=== PATIENT | male | born 1950 | race Hispanic/Latino ===

== ENCOUNTER 2016-09-21 10:32 | Emergency (ER) | payer MEDICARE ==
[2016-09-21 13:15] LABS: Anion Gap 15 mmol/L; BUN/Creatinine Ratio 16.66; Blood Urea Nitrogen 15 mg/dL (9-20); Calcium 9.3 mg/dL (8.4-10.2); Carbon Dioxide 28 mmol/L (22-30); Chloride 105.4 mmol/L (98-107); Glucose 102 mg/dL (75-100); Potassium 3.7 mmol/L (3.6-5.0); Sodium 145 mmol/L (137-145)
[2016-09-21 13:44] LABS: Eosinophils % (Auto) 3.5 % (0.0-4.3); Hemoglobin 13.4 gm/dl (11.8-15.2); Mean Corpuscular HGB Conc 34 % (32-34); Mean Corpuscular Hemoglobin 31 pg (28-32); Mean Corpuscular Volume 92 fl (84-94); Platelet Count 181 K/mm3 (140-440); Red Blood Count 4.34 M/mm3 (3.65-5.03); Red Cell Distribution Width 12.6 % (13.2-15.2); White Blood Count 6.6 K/mm3 (4.5-11.0)
--- NOTE | 2016-09-21 13:44 | Emergency Department Report ---
ED Chest Pain HPI - General Chief Complaint: Anxiety Stated Complaint: CHEST PAIN Time Seen by Provider: 09/21/16 12:44 Source: patient Mode of arrival: Ambulatory Limitations: No Limitations - History of Present Illness Initial Comments: 66-year-old male here with complaint of chest pain while walking to get a cab. Patient has been feeling very anxious over the course of the last several days and has been following up with his primary care doctor. They recently started him on hydroxyzine which is been making him feel very fatigued. Today he was walking to grab a drink and started developing chest pain. He had no associated symptoms and the pain is currently resolved. He exercises 4 times a week without any chest pain although he has not exercised over the last 3 weeks. No nausea vomiting fevers chills. -: Sudden Onset: during exertion Pain Location: substernal Pain Radiation: none Severity: mild Severity scale (0 -10): 4 Quality: tightness Consistency: now resolved Other Symptoms: denies: cough, fever, syncope, rash, acid taste in mouth, leg swelling, palpitations, burping - Related Data Allergies Allergy/AdvReac Type Severity Reaction Status Date / Time No Known Allergies Allergy Unverified 09/21/16 10:43 Heart Score - HEART Score History: Slightly suspicious EKG: Normal Age: > 65 Risk factors: 1-2 risk factors Troponin: < normal limit HEART Score: 3 - Critical Actions Critical Actions: 0-3 pts:0.9-1.7%risk of adverse cardiac event.Candidate for discharge ED Review of Systems ROS: Stated complaint: CHEST PAIN Other details as noted in HPI Comment: All other systems reviewed and negative Constitutional: denies: chills, fever Eyes: denies: eye pain, eye discharge, vision change ENT: denies: ear pain, throat pain Respiratory: denies: cough, shortness of breath, wheezing Cardiovascular: chest pain. denies: palpitations Endocrine: no symptoms reported Gastrointestinal: denies: abdominal pain, nausea, diarrhea Genitourinary: denies: urgency, dysuria Musculoskeletal: denies: back pain, joint swelling, arthralgia Skin: denies: rash, lesions Neurological: denies: headache, weakness, paresthesias Psychiatric: anxiety. denies: depression Hematological/Lymphatic: denies: easy bleeding, easy bruising ED Past Medical Hx - Past Medical History Previous Medical History?: Yes Hx Hypertension: Yes Hx GERD: Yes Hx Psychiatric Treatment: Yes (Anxiety) Additional medical history: Hernea - Surgical History Past Surgical History?: No - Family History Family history: CAD/TN - Social History Smoking Status: Never Smoker Substance Use Type: None ED Physical Exam - General Limitations: No Limitations General appearance: alert, in no apparent distress - Head Head exam: Present: atraumatic, normocephalic - Eye Eye exam: Present: normal appearance, PERRL, EOMI - ENT ENT exam: Present: mucous membranes moist - Neck Neck exam: Present: normal inspection - Respiratory Respiratory exam: Present: normal lung sounds bilaterally. Absent: respiratory distress - Cardiovascular Cardiovascular Exam: Present: regular rate, normal rhythm. Absent: systolic murmur, diastolic murmur, rubs, gallop - GI/Abdominal GI/Abdominal exam: Present: soft, normal bowel sounds - Rectal Rectal exam: Present: deferred - Extremities Exam Extremities exam: Present: normal inspection. Absent: tenderness, pedal edema - Back Exam Back exam: Present: normal inspection. Absent: tenderness, CVA tenderness (R), CVA tenderness (L) - Neurological Exam Neurological exam: Present: alert, oriented X3 - Psychiatric Psychiatric exam: Present: normal affect, normal mood - Skin Skin exam: Present: warm, dry, intact, normal color. Absent: rash ED Course Vital Signs 09/21/16 09/21/16 10:35 12:19 Temperature 98.2 F Pulse Rate 82 Respiratory 16 Rate Blood Pressure 138/82 O2 Sat by Pulse 97 100 Oximetry ED Medical Decision Making - Lab Data Result diagrams: 09/21/16 12:38 09/21/16 12:38 Laboratory Results - last 24 hr 09/21/16 09/21/16 12:38 12:38 WBC 6.6 RBC 4.34 Hgb 13.4 Hct 40.0 MCV 92 MCH 31 MCHC 34 RDW 12.6 L Plt Count 181 Lymph % (Auto) 10.7 L [place] % (Auto) 9.6 H Eos % (Auto) 3.5 Baso % (Auto) 1.0 Lymph # 0.7 L [place] # 0.6 Eos # 0.2 Baso # 0.1 Seg Neutrophils % 75.2 H Seg Neutrophils # 5.0 Sodium 145 Potassium 3.7 Chloride 105.4 Carbon Dioxide 28 Anion Gap 15 BUN 15 Creatinine 0.9 Estimated GFR > 60 BUN/Creatinine Ratio 16.66 Glucose 102 H Calcium 9.3 Troponin T < 0.010 - EKG Data -: EKG Interpreted by Me EKG shows normal: sinus rhythm - EKG Data 09/21/16 13:45 Sinus 66 normal axis normal intervals incomplete right bundle-branch block and no ST or T-wave changes - Radiology Data Radiology results: image reviewed interpreted by me: Normal chest x-ray - Medical Decision Making 66-year-old male here with complaint of sore and left chest pain while walking for a drink. His symptoms are currently resolved. He is low risk on heart score - 3. EKG is nonischemic. Plan to get a chest x-ray 2 sets of troponins and likely discharge. Labs and chest x-ray unremarkable. Plan discharge patient home. Plan to refer for outpatient stress testing. Portions of this chart were dictated with dictation software. There may be dictation errors contained within this note. Critical care attestation.: If time is entered above; I have spent that time in minutes in the direct care of this critically ill patient, excluding procedure time. ED Disposition Clinical Impression: Chest pain Disposition: DC-01 TO HOME OR SELFCARE Is pt being admited?: No Condition: Stable Instructions: Chest Pain (ED) Additional Instructions: Please follow-up with your primary care doctor for outpatient stress testing. Stop your hydroxyzine. Referrals: PRIMARY CARE, [Primary Care Provider] - 3-5 Days
[2016-09-21 15:28] VITALS: BP 160/76
--- NOTE | 2016-09-22 08:26 | XRay Report ---
AP CHEST : 09/21/16 10:32:00 CLINICAL: Chest pain. COMPARISON:None FINDINGS: Borderline cardiomegaly. Redistribution of pulmonary blood flow to the upper lobes. The lungs are normally expanded and clear. The bones and soft tissues are unremarkable. IMPRESSION: Borderline cardiomegaly and pulmonary venous hypertension. No pulmonary edema.
== END 2016-09-21 15:28 | disposition home or self-care (01) ==
LOC: ED 10:32
DX: R07.2 Precordial pain (principal); I10 Essential (primary) hypertension; K21.9 Gastro-esophageal reflux disease without esophagitis; F41.9 Anxiety disorder, unspecified
CPT/HCPCS: 36415; 71010; 80048; 84484; 85025; 93005; 93010

== ENCOUNTER 2016-11-15 15:01 | Emergency (ER) | payer MEDICARE ==
[2016-11-15 16:39] LABS: Anion Gap 17 mmol/L; BUN/Creatinine Ratio 9.16; Basophils % (Auto) 0.7 % (0.0-1.8); Blood Urea Nitrogen 11 mg/dL (9-20); Calcium 9.9 mg/dL (8.4-10.2); Carbon Dioxide 24 mmol/L (22-30); Chloride 102.7 mmol/L (98-107); Eosinophils % (Auto) 0.5 % (0.0-4.3); Glucose 215 mg/dL (75-100); Hematocrit 43.5 % (35.5-45.6); Hemoglobin 15.1 gm/dl (11.8-15.2); Mean Corpuscular HGB Conc 35 % (32-34); Mean Corpuscular Hemoglobin 32 pg (28-32); Mean Corpuscular Volume 92 fl (84-94); Platelet Count 158 K/mm3 (140-440); Potassium 3.9 mmol/L (3.6-5.0); Red Blood Count 4.72 M/mm3 (3.65-5.03); Red Cell Distribution Width 12.3 % (13.2-15.2); Sodium 140 mmol/L (137-145)
[2016-11-15 17:06] LABS: Urine Drugs of Abuse Note Disclamer
[2016-11-15 17:23] LABS: Bilirubin,Urine NEG (Negative); Blood,Urine MOD (Negative); Ketones,Urine TR mg/dL (Negative); Leukocyte Esterase,Urine NEG (Negative); Mucus,Urine FEW /HPF; Nitrite,Urine NEG (Negative); Protein,Urine <15 mg/dL mg/dL (Negative); Urobilinogen,Urine < 2.0 mg/dL (<2.0)
--- NOTE | 2016-11-15 18:45 | Emergency Department Report ---
ED General Adult HPI - General Chief complaint: Psych Stated complaint: HOPELESS, AFFRAID, NOT SLEEPING Time Seen by Provider: 11/15/16 18:02 Source: patient, RN notes reviewed Mode of arrival: Ambulatory Limitations: No Limitations - History of Present Illness Initial comments: This is a 66-year-old male, the patient is previously unknown to me. The patient presents to the ER with a complaint of decreased appetite, paranoia, depression. The patient reports that "if I don't get help, I don't know what I' m going to do." The patient is not overtly deny suicidality. He indicates he is not homicidal. The patient indicates that he is not currently experiencing hallucinations, but overnight he occasionally sees things which aren't there. He denies headache, neck pain, chest pain, abdominal pain and soreness of breath. He thinks he has a urinary tract infection, and was recently prescribed Bactrim by a physician in [facility]. He does not recall the name of the physician. He denies dysuria, denies urinary frequency, he does complain of her renal discomfort and right-sided testicular discomfort. He also reports that he has a chronic right-sided testicular/inguinal hernia which is "reducible." The patient indicates no exacerbating or relieving factors to his symptoms. -: Gradual Location: pelvis Quality: aching Consistency: constant Improves with: none Worsens with: none Associated Symptoms: denies other symptoms - Related Data Home Medications Medication Instructions Recorded Confirmed Last Taken Doxazosin [Cardura] 2 mg PO QDAY 11/15/16 11/15/16 11/15/16 Ranitidine HCl 150 mg PO BID 11/15/16 11/15/16 11/15/16 Simvastatin [Zocor TAB] 20 mg PO QHS 11/15/16 11/15/16 11/15/16 Allergies Allergy/AdvReac Type Severity Reaction Status Date / Time No Known Allergies Allergy Unverified 09/21/16 10:43 ED Review of Systems ROS: Stated complaint: HOPELESS, AFFRAID, NOT SLEEPING Other details as noted in HPI Constitutional: malaise. denies: fever Eyes: denies: eye discharge ENT: denies: epistaxis Respiratory: denies: cough Cardiovascular: denies: chest pain Gastrointestinal: denies: abdominal pain Genitourinary: as per HPI, testicular mass Musculoskeletal: denies: back pain Skin: denies: lesions Neurological: weakness Psychiatric: anxiety. denies: homicidal thoughts ED Past Medical Hx - Past Medical History Previous Medical History?: Yes Hx Hypertension: Yes Hx GERD: Yes Hx Psychiatric Treatment: Yes (Anxiety) Additional medical history: Hernia - Surgical History Past Surgical History?: No - Social History Smoking Status: Never Smoker Substance Use Type: None - Medications Home Medications: Home Medications Medication Instructions Recorded Confirmed Last Taken Type Doxazosin [Cardura] 2 mg PO QDAY 11/15/16 11/15/16 11/15/16 History Ranitidine HCl 150 mg PO BID 11/15/16 11/15/16 11/15/16 History Simvastatin [Zocor TAB] 20 mg PO QHS 11/15/16 11/15/16 11/15/16 History ED Physical Exam - General Limitations: No Limitations General appearance: alert, in no apparent distress - Head Head exam: Present: atraumatic, normocephalic - Eye Eye exam: Present: normal appearance, EOMI. Absent: nystagmus - ENT ENT exam: Present: normal exam, normal orophraynx, mucous membranes moist, normal external ear exam - Neck Neck exam: Present: normal inspection, full ROM. Absent: tenderness, meningismus - Respiratory Respiratory exam: Present: normal lung sounds bilaterally. Absent: respiratory distress, wheezes, rales, rhonchi, stridor, chest wall tenderness, accessory muscle use, decreased breath sounds, prolonged expiratory - Cardiovascular Cardiovascular Exam: Present: regular rate, normal rhythm, normal heart sounds. Absent: bradycardia, tachycardia, irregular rhythm, systolic murmur, diastolic murmur, rubs, gallop - GI/Abdominal GI/Abdominal exam: Present: soft, normal bowel sounds. Absent: distended, tenderness, guarding, rebound, rigid, pulsatile mass - Rectal Rectal exam: Present: deferred - exam: Present: normal inspection, testicular tenderness (minimal right-sided testicular tenderness, otherwise no testicular tenderness.), scrotal swelling, other (right-sided inguinal hernia noted in the right testicular sac, it is reducible.) External exam: Present: other (cremasteric reflex intact the left hemiscrotum. There is no left testicular tenderness. There is normal testicular lie in the left hemiscrotum) - Extremities Exam Extremities exam: Present: normal inspection - Back Exam Back exam: Present: normal inspection, full ROM. Absent: tenderness, CVA tenderness (R), CVA tenderness (L), muscle spasm, paraspinal tenderness, vertebral tenderness - Neurological Exam Neurological exam: Present: alert, oriented X3, normal gait, other (Extraocular movements intact. Tongue midline. No facial droop. Facial sensation intact to light touch in the V1, V2, V3 distribution bilaterally. 5 and 5 strength in 4 extremities.. Sensation is intact to light touch in 4 extremities.). Absent : motor sensory deficit - Psychiatric Psychiatric exam: Present: depressed. Absent: homicidal ideation - Skin Skin exam: Present: warm, dry, intact, normal color. Absent: rash ED Course Vital Signs 11/15/16 15:08 Temperature 98.4 F Pulse Rate 86 Respiratory 16 Rate Blood Pressure 163/93 O2 Sat by Pulse 99 Oximetry - Reevaluation(s) Reevaluation #1: 11/15/16 20:50 Testicular ultrasound negative for acute findings, incidental findings are noted , which can be followed up as an outpatient. There is no medical contraindication to psychiatric admission/evaluation and consultation this time. The crisis team has been paged to discuss. ED Medical Decision Making - Lab Data Result diagrams: 11/15/16 16:03 11/15/16 16:03 Vital Signs 11/15/16 15:08 Temperature 98.4 F Pulse Rate 86 Respiratory 16 Rate Blood Pressure 163/93 O2 Sat by Pulse 99 Oximetry Lab Results 11/15/16 11/15/16 11/15/16 Range/Units 15:37 15:37 16:03 WBC (4.5-11.0) K/mm3 RBC (3.65-5.03) M/mm3 Hgb (11.8-15.2) gm/dl Hct (35.5-45.6) % MCV (84-94) fl MCH (28-32) pg MCHC (32-34) % RDW (13.2-15.2) % Plt Count (140-440) K/mm3 Lymph % (Auto) (13.4-35.0) % [place] % (Auto) (0.0-7.3) % Eos % (Auto) (0.0-4.3) % Baso % (Auto) (0.0-1.8) % Lymph # (1.2-5.4) K/mm3 [place] # (0.0-0.8) K/mm3 Eos # (0.0-0.4) K/mm3 Baso # (0.0-0.1) K/mm3 Seg Neutrophils % (40.0-70.0) % Seg Neutrophils # (1.8-7.7) K/mm3 Sodium 140 (137-145) mmol/L Potassium 3.9 (3.6-5.0) mmol/L Chloride 102.7 (98-107) mmol/L Carbon Dioxide 24 (22-30) mmol/L Anion Gap 17 mmol/L BUN 11 (9-20) mg/dL Creatinine 1.2 (0.8-1.5) mg/dL Estimated GFR > 60 ml/min BUN/Creatinine Ratio 9.16 % Glucose 215 H (75-100) mg/dL Calcium 9.9 (8.4-10.2) mg/dL Urine Color Yellow (Yellow) Urine Turbidity Clear (Clear) Urine pH 5.0 (5.0-7.0) Ur Specific [place] 1.017 (1.003-1.030) Urine Protein <15 mg/dl (Negative) mg/dL Urine Glucose (UA) 50 (Negative) mg/dL Urine Ketones Tr (Negative) mg/dL Urine Blood Mod (Negative) Urine Nitrite Neg (Negative) Urine Bilirubin Neg (Negative) Urine Urobilinogen < 2.0 (<2.0) mg/dL Ur Leukocyte Esterase Neg (Negative) Urine WBC (Auto) 1.0 (0.0-6.0) /HPF Urine RBC (Auto) 21.0 (0.0-6.0) /HPF Urine Mucus Few /HPF Urine Opiates Screen Presumptive negative Urine Methadone Screen Presumptive negative Ur Barbiturates Screen Presumptive negative Ur Phencyclidine Scrn Presumptive negative Ur Amphetamines Screen Presumptive negative U Benzodiazepines Scrn Presumptive negative Urine Cocaine Screen Presumptive negative U Marijuana (THC) Screen Presumptive negative Drugs of Abuse Note Disclamer Plasma/Serum Alcohol (0-0.07) gm% 11/15/16 11/15/16 Range/Units 16:03 16:03 WBC 5.0 (4.5-11.0) K/mm3 RBC 4.72 (3.65-5.03) M/mm3 Hgb 15.1 (11.8-15.2) gm/dl Hct 43.5 (35.5-45.6) % MCV 92 (84-94) fl MCH 32 (28-32) pg MCHC 35 H (32-34) % RDW 12.3 L (13.2-15.2) % Plt Count 158 (140-440) K/mm3 Lymph % (Auto) 13.6 (13.4-35.0) % [place] % (Auto) 5.0 (0.0-7.3) % Eos % (Auto) 0.5 (0.0-4.3) % Baso % (Auto) 0.7 (0.0-1.8) % Lymph # 0.7 L (1.2-5.4) K/mm3 [place] # 0.3 (0.0-0.8) K/mm3 Eos # 0.0 (0.0-0.4) K/mm3 Baso # 0.0 (0.0-0.1) K/mm3 Seg Neutrophils % 80.2 H (40.0-70.0) % Seg Neutrophils # 4.0 (1.8-7.7) K/mm3 Sodium (137-145) mmol/L Potassium (3.6-5.0) mmol/L Chloride (98-107) mmol/L Carbon Dioxide (22-30) mmol/L Anion Gap mmol/L BUN (9-20) mg/dL Creatinine (0.8-1.5) mg/dL Estimated GFR ml/min BUN/Creatinine Ratio % Glucose (75-100) mg/dL Calcium (8.4-10.2) mg/dL Urine Color (Yellow) Urine Turbidity (Clear) Urine pH (5.0-7.0) Ur Specific [place] (1.003-1.030) Urine Protein (Negative) mg/dL Urine Glucose (UA) (Negative) mg/dL Urine Ketones (Negative) mg/dL Urine Blood (Negative) Urine Nitrite (Negative) Urine Bilirubin (Negative) Urine Urobilinogen (<2.0) mg/dL Ur Leukocyte Esterase (Negative) Urine WBC (Auto) (0.0-6.0) /HPF Urine RBC (Auto) (0.0-6.0) /HPF Urine Mucus /HPF Urine Opiates Screen Urine Methadone Screen Ur Barbiturates Screen Ur Phencyclidine Scrn Ur Amphetamines Screen U Benzodiazepines Scrn Urine Cocaine Screen U Marijuana (THC) Screen Drugs of Abuse Note Plasma/Serum Alcohol < 0.01 (0-0.07) gm% - Radiology Data Radiology results: report reviewed, image reviewed - Medical Decision Making Differential diagnosis: Paranoia, depression, testicular torsion, orchitis, epididymitis, testicular abscess, medical clearance for psychiatric placement Assessment and plan: 66-year-old male with complaint of depression, borderline suicidality, right- sided testicular discomfort, denies irritated obstructive urinary symptoms, has a GCS of 15, with an NIH score of 0, clinically sober at this time, and walks with a steady gait. Given borderline suicidality, he is placed on a 1013. His laboratory studies are unremarkable. A testicular ultrasound is pending at this time. Urinalysis is not corroborated urinary tract infection at this time. Critical care attestation.: If time is entered above; I have spent that time in minutes in the direct care of this critically ill patient, excluding procedure time. ED Disposition Clinical Impression: Mood disorder Disposition: DC/TX-65 PSY HOSP/PSY UNIT Is pt being admited?: No Does the pt Need Aspirin: No Condition: Good Referrals: ZABRINA HOLDER MD [Primary Care Provider] - 3-5 Days
--- NOTE | 2016-11-15 20:17 | Ultrasound Report ---
FINAL REPORT PROCEDURE: US TESTICULAR DOPPLER COMP TECHNIQUE: Real-time farmer-scale and color flow Doppler sonography in multiple planes of the scrotum, testicles, and epididymes was performed. Velocity spectral waveform analysis Doppler imaging of the arterial inflow and venous outflow of the testicles was performed with image documentation. CPT 27471 and 03814 HISTORY: Right testicular pain. COMPARISON: No prior studies are available for comparison. FINDINGS: RIGHT TESTICLE: Size: 4.6 x 2.4 x 3.0 centimeters. Appearance: Normal size and echotexture . Arterial blood flow: Normal spectral waveforms, flow velocities and color flow images.. Venous blood flow: Normal spectral waveforms and color flow images. Right epididymis: Normal size and echotexture . Hydrocele: None . Other: In the right groin there is an inguinal hernia with bowel. LEFT TESTICLE Size: 5.1 x 1.8 x 3.2 centimeters. An area of inhomogeneous tissue measuring 2.5 x 0.6 x 0.8 centimeters seen in the left testicle. This has areas of what appear to be possibly dilated tubules. Appearance: Normal size and echotexture . Arterial blood flow: Normal spectral waveforms, flow velocities and color flow images.. Venous blood flow: Normal spectral waveforms and color flow images. Leftepididymis: Normal size and echotexture . Hydrocele: None . IMPRESSION: Bilateral testicles demonstrate normal flow. An area of inhomogeneous tissue in the left testicles which may have dilated tubules. Consider rete testes/benign tubular ectasia of the rete testes. Consider further evaluation and followup including followup ultrasound or MRI (if patient has no contraindication MRI) if there is concern for underlying mass lesion. Right inguinal hernia with bowel.
[2016-11-15] MEDS ORDERED: ATIVAN IM PRN (20:51)
[2016-11-15] MEDS ORDERED: TYLENOL PO PRN (20:51)
[2016-11-15] MEDS ORDERED: PEPCID PO PRN (20:51)
[2016-11-16] MEDS ORDERED: RANITIDINE HCL 150 MG PO SCH (00:45)
[2016-11-16 04:51] VITALS: BP 113/75
[2016-11-16] MEDS ORDERED: CARDURA PO SCH (10:00)
[2016-11-16] MEDS ORDERED: PEPCID PO SCH (10:00)
[2016-11-16] MEDS ORDERED: ZOCOR PO SCH (22:00)
== END 2016-11-15 23:00 ==
LOC: EEVIPCON 15:01 → ED 15:01
DX: F39 Unspecified mood [affective] disorder (principal); I10 Essential (primary) hypertension; K21.9 Gastro-esophageal reflux disease without esophagitis
CPT/HCPCS: 36415; 80048; 80307; 81001; 82550; 85025; 93975; 99285; G0480; 80320

== ENCOUNTER 2016-12-10 10:39 | Day surgery (SDC) | payer MEDICARE ==
--- NOTE | 2016-12-10 12:05 | Anesthesia Day of Surgery ---
Anesthesia Day of Surgery - Day of Surgery Patient Examined: Yes Patient H&P Reviewed: Yes Patient is NPO: Yes
--- NOTE | 2016-12-10 12:05 | Anesthesia Consultation ---
Anesthesia Consult and Med Hx Date of service: 12/10/16 - Airway Anesthetic Teeth Evaluation: Good ROM Head & Neck: Adequate Mental/Hyoid Distance: Adequate Mallampati Class: Class II Intubation Access Assessment: Probably Good - Pulmonary Exam CTA: Yes - Cardiac Exam Cardiac Exam: RRR - Pre-Operative Health Status ASA Pre-Surgery Classification: ASA2 Proposed Anesthetic Plan: General - Pulmonary Hx Smoking: No Hx Sleep Apnea: No (MARITO PRE SCREEN HIGH RISK) - Cardiovascular System Hx Hypertension: Yes (X 10 YRS) - Central Nervous System Hx Psychiatric Problems: Yes (WAS 1013 11/16/16 ON PSY HOLD FOR PARANOIA) - Other Systems Hx Cancer: No
[2016-12-10] MEDS ORDERED: HEPARIN SUB-Q NR (12:07)
[2016-12-10] MEDS ORDERED: MARCAINE-EPI/PF 0.5%-1:200,000 INFILTRATI ONE ×2 (12:09→13:16)
[2016-12-10] MEDS ORDERED: ZEMURON IV ONE (12:16)
[2016-12-10] MEDS ORDERED: DIPRIVAN 10 MG/ML IV ONE (12:16)
[2016-12-10] MEDS ORDERED: DILAUDID ONE (12:16)
[2016-12-10] MEDS ORDERED: XYLOCAINE MPF 2% ONE (12:16)
[2016-12-10] MEDS ORDERED: ANCEF/STERILE WATER 2 GM/20 ML IV NR (12:30)
[2016-12-10] MEDS ORDERED: ePHEDrine SULFATE ONE (12:52)
[2016-12-10] MEDS ORDERED: VERSED IV NR (13:00)
[2016-12-10] MEDS ORDERED: PEPCID PO NR (13:00)
[2016-12-10] MEDS ORDERED: NACL 0.9% 1000 ML 1,000 ML IV SCH (13:00)
[2016-12-10] MEDS ORDERED: DECADRON ONE (13:13)
[2016-12-10] MEDS ORDERED: ZOFRAN ONE (13:13)
[2016-12-10] MEDS ORDERED: NEOSTIGMINE ONE (13:14)
[2016-12-10] MEDS ORDERED: ROBINUL ONE ×2 (13:14→13:59)
[2016-12-10] MEDS ORDERED: NACL 0.9% IR ONE (13:16)
--- NOTE | 2016-12-10 15:14 | Post Anesthesia Evaluation ---
- Post Anesthesia Evaluation Patient Participated: Yes Airway Patent: Yes Stable Respiratory Function: Yes Temp > 96.8F: Yes Pain Manageable: Yes Adequeate Hydration: Yes Anesthesia Complications: No
--- NOTE | 2016-12-10 15:26 | Post Operative Note ---
Pre-op diagnosis: RIH Post-op diagnosis: same (indirect) Procedure: Open repair with mesh plug insertion Anesthesia: ASYA Surgeon: TESFAYE DOSS Estimated blood loss: minimal Pathology: list (hernia sac) Specimen disposition: to lab Condition: stable Disposition: PACU
[2016-12-10 17:56] VITALS: BP 148/80
--- NOTE | 2016-12-15 16:36 | Operative Report ---
Operative Report Operative Report: Date of operation: 12/10/2016 Preoperative diagnosis: Right inguinal hernia Postoperative diagnosis: Same, indirect Operation: Open repair of above with mesh plug insertion Surgeon: Napoleon Diane M.D. Findings: Large indirect hernia sac Anesthesia: GETA EBL: Minimal There were no complications, drains or cultures. Specimens: Hernia sac Description of procedure: Patient was placed supine on the operating room table. After adequate general anesthesia was administered his abdomen, genitalia and right thigh were prepped and draped. Skin and subcutaneous tissue at the site of the proposed incision were infiltrated with 8 mL of 0.5% Marcaine with epinephrine. Skin was incised. Subcutaneous tissue was transected using the Bovie. External oblique aponeurosis and the external inguinal ring were exposed. The external oblique aponeurosis was incised over the inguinal canal paying careful attention to preserve the ilioinguinal nerve. The cord was dissected circumferentially at the level of the pubic tubercle and a Spring drain passed about the cord. There was no evidence of a direct hernia. An obvious indirect hernia was present within the cord. This was dissected free from the cord structures proximally. The sac was entered and was not found to contain any intra-abdominal contents. The hernia sac was ligated high with a pursestring suture of 0 silk. The internal inguinal ring was found to be somewhat patulous. This was treated with a mesh plug which was secured to the conjoined tendon medially and the shelving portion of Poupart's ligament laterally with several interrupted sutures of 2-0 Ethibond. External oblique aponeurosis was reapproximated with a running suture of 3-0 Vicryl. Skin was approximated with miquel. A sterile absorbent dressing was applied. Patient tolerated the procedure well. He was extubated in the operating room and was taken to the PACU in stable condition.
== END 2016-12-10 17:42 | disposition home or self-care (01) ==
LOC: OR 10:39
PROVIDERS: ATTEND Surgery
DX: K40.90 Unilateral inguinal hernia, without obstruction or gangrene, not specified as recurrent (principal); I10 Essential (primary) hypertension; Z79.899 Other long term (current) drug therapy
CPT/HCPCS: 49505; 82962; 88302; C1781; J0690; J1100; J1170; J1644; J2250; J2405; J2704; J2710; J7030

== ENCOUNTER 2016-12-17 12:51 | Emergency (ER) | payer MEDICARE ==
[2016-12-17 13:42] LABS: Basophils % (Auto) 0.4 % (0.0-1.8); Eosinophils % (Auto) 0.5 % (0.0-4.3); Hematocrit 41.5 % (35.5-45.6); Hemoglobin 14.3 gm/dl (11.8-15.2); Mean Corpuscular HGB Conc 34 % (32-34); Mean Corpuscular Hemoglobin 32 pg (28-32); Mean Corpuscular Volume 92 fl (84-94); Platelet Count 195 K/mm3 (140-440); Red Cell Distribution Width 12.5 % (13.2-15.2); White Blood Count 7.6 K/mm3 (4.5-11.0)
[2016-12-17 13:52] LABS: Bacteria,Urine 1+ /HPF (Negative); Bilirubin,Urine NEG (Negative); Blood,Urine NEG (Negative); Ketones,Urine NEG (Negative); Leukocyte Esterase,Urine NEG (Negative); Mucus,Urine FEW /HPF; Nitrite,Urine NEG (Negative); Protein,Urine <15 mg/dL mg/dL (Negative)
[2016-12-17 13:53] LABS: Anion Gap 15 mmol/L; BUN/Creatinine Ratio 13; Blood Urea Nitrogen 9 mg/dL (9-20); Carbon Dioxide 31 mmol/L (22-30); Chloride 101.9 mmol/L (98-107); Glucose 132 mg/dL (75-100); Potassium 3.8 mmol/L (3.6-5.0); Sodium 144 mmol/L (137-145)
--- NOTE | 2016-12-17 22:37 | Emergency Department Report ---
ED General Adult HPI - General Chief complaint: Abdominal Pain Stated complaint: CAN NOT URINATE Time Seen by Provider: 12/17/16 21:50 Source: patient, RN notes reviewed, old records reviewed Mode of arrival: Ambulatory Limitations: No Limitations - History of Present Illness Initial comments: This is a 66-year-old female, patient had right-sided inguinal hernia surgery about one week ago, presenting with inability to urinate. He reports that postoperatively, he was discharged with a Walker catheter, which was taken out on Thursday, a few days ago. He was initially able to urinate, but today is now not able to urinate. This was alleviated with placement of a Walker catheter. He denies headache, neck pain, chest pain, abdominal pain, shortness of breath, has chronic right-sided testicular ecchymosis which has been present since his operative surgery last week. He has follow-up in 2 days with [facility], Dr. Dozier. -: Gradual, hour(s) Consistency: now resolved Improves with: other (placement of a Walker catheter) Worsens with: other (discontinuation of a Walker catheter) - Related Data Home Medications Medication Instructions Recorded Confirmed Last Taken Doxazosin [Cardura] 2 mg PO QDAY 11/15/16 12/10/16 12/09/16 Ranitidine HCl 150 mg PO BID 11/15/16 12/10/16 12/10/16 Simvastatin [Zocor TAB] 20 mg PO QHS 11/15/16 12/10/16 12/09/16 Ibuprofen [Motrin] 800 mg PO Q8HR PRN 12/05/16 12/10/16 12/04/16 Sertraline [Zoloft] 50 mg PO QDAY 12/05/16 12/10/16 12/09/16 traZODone [Desyrel] 200 mg PO QHS 12/05/16 12/10/16 12/09/16 Allergies Allergy/AdvReac Type Severity Reaction Status Date / Time No Known Allergies Allergy Verified 12/05/16 12:59 ED Review of Systems ROS: Stated complaint: CAN NOT URINATE Other details as noted in HPI Constitutional: denies: fever Eyes: denies: eye discharge ENT: denies: epistaxis Respiratory: denies: cough Cardiovascular: denies: chest pain Gastrointestinal: denies: abdominal pain Genitourinary: as per HPI, other (inability to urinate) Skin: denies: lesions Neurological: denies: weakness ED Past Medical Hx - Past Medical History Hx Hypertension: Yes (X 10 YRS) Hx Diabetes: No (HIGH BLOOD SUGAR IN ER) Hx GERD: Yes Hx Psychiatric Treatment: Yes (Anxiety) Hx HIV: No Additional medical history: Hernia - Social History Smoking Status: Never Smoker - Medications Home Medications: Home Medications Medication Instructions Recorded Confirmed Last Taken Type Doxazosin [Cardura] 2 mg PO QDAY 11/15/16 12/10/16 12/09/16 History Ranitidine HCl 150 mg PO BID 11/15/16 12/10/16 12/10/16 History Simvastatin [Zocor TAB] 20 mg PO QHS 11/15/16 12/10/16 12/09/16 History Ibuprofen [Motrin] 800 mg PO Q8HR PRN 12/05/16 12/10/16 12/04/16 History Sertraline [Zoloft] 50 mg PO QDAY 12/05/16 12/10/16 12/09/16 History traZODone [Desyrel] 200 mg PO QHS 12/05/16 12/10/16 12/09/16 History ED Physical Exam - General Limitations: No Limitations General appearance: alert, in no apparent distress - Head Head exam: Present: atraumatic, normocephalic - Eye Eye exam: Present: normal appearance, EOMI. Absent: nystagmus - ENT ENT exam: Present: normal exam, normal orophraynx, mucous membranes moist, normal external ear exam - Neck Neck exam: Present: normal inspection, full ROM. Absent: tenderness, meningismus - Respiratory Respiratory exam: Present: normal lung sounds bilaterally. Absent: respiratory distress, wheezes, rales, rhonchi, stridor, chest wall tenderness, accessory muscle use, decreased breath sounds, prolonged expiratory - Cardiovascular Cardiovascular Exam: Present: regular rate, normal rhythm, normal heart sounds. Absent: bradycardia, tachycardia, irregular rhythm, systolic murmur, diastolic murmur, rubs, gallop - GI/Abdominal GI/Abdominal exam: Present: soft, normal bowel sounds, other (Aileen noted in the right lower quadrant, no redness, pus or streaking, appropriate healing, no tenderness). Absent: distended, tenderness, guarding, rebound, rigid, pulsatile mass - Rectal Rectal exam: Present: deferred - exam: Absent: testicular tenderness (there is right-sided testicular ecchymosis, which the patient reports has been there for over a week) External exam: Present: other (Walker catheter is in place, draining clear yellow urine) - Extremities Exam Extremities exam: Present: normal inspection, full ROM, normal capillary refill. Absent: pedal edema, joint swelling, calf tenderness - Back Exam Back exam: Present: normal inspection, full ROM. Absent: tenderness, CVA tenderness (R), CVA tenderness (L), muscle spasm, paraspinal tenderness, vertebral tenderness - Neurological Exam Neurological exam: Present: alert, oriented X3, normal gait, other (Extraocular movements intact. Tongue midline. No facial droop. Facial sensation intact to light touch in the V1, V2, V3 distribution bilaterally. 5 and 5 strength in 4 extremities.. Sensation is intact to light touch in 4 extremities.). Absent : motor sensory deficit - Psychiatric Psychiatric exam: Present: normal affect, normal mood - Skin Skin exam: Present: warm, dry, intact, normal color. Absent: rash ED Course Vital Signs 12/17/16 12/17/16 12:55 22:45 Temperature 98.1 F 99.0 F Pulse Rate 74 82 Respiratory 16 18 Rate Blood Pressure 167/87 Blood Pressure 159/84 [Left] O2 Sat by Pulse 99 97 Oximetry ED Medical Decision Making - Lab Data Result diagrams: 12/17/16 13:25 12/17/16 13:25 Vital Signs 12/17/16 12:55 Temperature 98.1 F Pulse Rate 74 Respiratory 16 Rate Blood Pressure 167/87 O2 Sat by Pulse 99 Oximetry Vital Signs 12/17/16 12:55 Temperature 98.1 F Pulse Rate 74 Respiratory 16 Rate Blood Pressure 167/87 O2 Sat by Pulse 99 Oximetry Lab Results 12/17/16 12/17/16 12/17/16 Range/Units 13:22 13:25 13:25 WBC 7.6 (4.5-11.0) K/mm3 RBC 4.50 (3.65-5.03) M/mm3 Hgb 14.3 (11.8-15.2) gm/dl Hct 41.5 (35.5-45.6) % MCV 92 (84-94) fl MCH 32 (28-32) pg MCHC 34 (32-34) % RDW 12.5 L (13.2-15.2) % Plt Count 195 (140-440) K/mm3 Lymph % (Auto) 9.6 L (13.4-35.0) % [place] % (Auto) 4.8 (0.0-7.3) % Eos % (Auto) 0.5 (0.0-4.3) % Baso % (Auto) 0.4 (0.0-1.8) % Lymph # 0.7 L (1.2-5.4) K/mm3 [place] # 0.4 (0.0-0.8) K/mm3 Eos # 0.0 (0.0-0.4) K/mm3 Baso # 0.0 (0.0-0.1) K/mm3 Seg Neutrophils % 84.7 H (40.0-70.0) % Seg Neutrophils # 6.4 (1.8-7.7) K/mm3 Sodium 144 (137-145) mmol/L Potassium 3.8 (3.6-5.0) mmol/L Chloride 101.9 (98-107) mmol/L Carbon Dioxide 31 H (22-30) mmol/L Anion Gap 15 mmol/L BUN 9 (9-20) mg/dL Creatinine 0.7 L (0.8-1.5) mg/dL Estimated GFR > 60 ml/min BUN/Creatinine Ratio 13 % Glucose 132 H (75-100) mg/dL Calcium 10.0 (8.4-10.2) mg/dL Urine Color Yellow (Yellow) Urine Turbidity Clear (Clear) Urine pH 7.0 (5.0-7.0) Ur Specific [place] 1.010 (1.003-1.030) Urine Protein <15 mg/dl (Negative) mg/dL Urine Glucose (UA) Neg (Negative) mg/dL Urine Ketones Neg (Negative) mg/dL Urine Blood Neg (Negative) Urine Nitrite Neg (Negative) Urine Bilirubin Neg (Negative) Urine Urobilinogen 2.0 (<2.0) mg/dL Ur Leukocyte Esterase Neg (Negative) Urine WBC (Auto) 1.0 (0.0-6.0) /HPF Urine RBC (Auto) 1.0 (0.0-6.0) /HPF Urine Bacteria (Auto) 1+ (Negative) /HPF Amorphous Crystals Few Urine Mucus Few /HPF - Medical Decision Making Differential diagnosis: Postoperative urinary retention, urinary tract infection Assessment and plan: 66-year-old male who is approximately one week status post hernia repair surgery, with resolved urinary retention; Walker catheter was placed with a leg bag prior to my evaluation, she has no pain at this time, his abdomen is soft and benign, urinalysis not consistent with infection, patient has follow-up with urology in 2 days; [facility] (Dr. Juwan Dozier). Patient and family offered reassurance, instructed to continue current outpatient medications, instructed to continue Walker catheter with leg bag, and to follow-up on Thursday. Patient will be discharged at this time, return precautions reviewed. Critical care attestation.: If time is entered above; I have spent that time in minutes in the direct care of this critically ill patient, excluding procedure time. ED Disposition Clinical Impression: Urinary retention Disposition: - TO HOME OR SELFCARE Is pt being admited?: No Does the pt Need Aspirin: No Condition: Stable Instructions: Urinary Retention in Men (ED) Additional Instructions: Continue current outpatient medications. Follow up on Thursday with the urology specialist. Return to the ER right away with fevers, chills, chest pain, service of breath, intractable nausea or vomiting, confusion, inability to defecate, inability to urinate, loss of consciousness, severe abdominal pain. Do not remove Walker catheter until the urology specialist instruct the patient to do so. Referrals: ZABRINA HOLDER MD [Primary Care Provider] - 3-5 Days GRADY DOZIER MD [Staff Physician] - 3-5 Days
[2016-12-17 22:51] VITALS: BP 159/84
== END 2016-12-17 23:15 | disposition home or self-care (01) ==
LOC: ED 12:51
DX: R33.9 Retention of urine, unspecified (principal); I10 Essential (primary) hypertension; K21.9 Gastro-esophageal reflux disease without esophagitis; F41.9 Anxiety disorder, unspecified
CPT/HCPCS: 36415; 51702; 80048; 81001; 85025

== ENCOUNTER 2017-03-26 05:54 | Day surgery (SDC) | payer MEDICARE ==
[2017-03-26] MEDS ORDERED: NACL 0.9% 500 ML 500 ML IV SCH (07:00)
[2017-03-26 07:01] LABS: Basophils # (Auto) 0.1 K/mm3 (0.0-0.1); Basophils % (Auto) 2.3 % (0.0-1.8); Eosinophils # (Auto) 0.2 K/mm3 (0.0-0.4); Eosinophils % (Auto) 5.4 % (0.0-4.3); Hematocrit 41.5 % (35.5-45.6); Hemoglobin 14.2 gm/dl (11.8-15.2); Lymphocytes # (Auto) 1.2 K/mm3 (1.2-5.4); Lymphocytes % (Auto) 31.9 % (13.4-35.0); Mean Corpuscular HGB Conc 34 % (32-34); Mean Corpuscular Hemoglobin 32 pg (28-32); Mean Corpuscular Volume 93 fl (84-94); Monocytes # (Auto) 0.4 K/mm3 (0.0-0.8); Monocytes % (Auto) 10.9 % (0.0-7.3); Platelet Count 147 K/mm3 (140-440); Red Blood Count 4.46 M/mm3 (3.65-5.03); Red Cell Distribution Width 12.1 % (13.2-15.2)
[2017-03-26 07:10] LABS: INR 0.88 (0.87-1.13)
[2017-03-26 07:12] LABS: BUN/Creatinine Ratio 15; Blood Urea Nitrogen 17 mg/dL (9-20); Calcium 9.7 mg/dL (8.4-10.2); Hemolysis Index 7
[2017-03-26] MEDS ORDERED: ECOTRIN PO NR (07:30)
[2017-03-26] MEDS ORDERED: CALAN ONE (08:19)
[2017-03-26] MEDS ORDERED: HEPARIN/NS 5000 UNIT/500ML(CATH LAB) 1,000 ML IR ONE (08:19)
[2017-03-26] MEDS ORDERED: XYLOCAINE 2% INFILTRATI ONE (08:19)
[2017-03-26] MEDS ORDERED: HEPARIN 10,000 UNITS/10 ML ONE (08:19)
[2017-03-26] MEDS ORDERED: NITROGLYCERIN SYRINGE 3 ML ONE (08:20)
[2017-03-26] MEDS ORDERED: SUBLIMAZE ONE (08:21)
[2017-03-26] MEDS ORDERED: VERSED ONE (08:21)
[2017-03-26] MEDS ORDERED: ULTRAM PO PRN (10:10)
--- NOTE | 2017-03-26 10:15 | Discharge Summary ---
Short Stay Discharge Plan Weight Bearing Status: Full Weight Bearing Diet: low fat, low cholesterol, low salt Special Instructions: no heavy lifting Follow up with: ZABRINA HOLDER MD [Primary Care Provider] - 7 Days
[2017-03-26] MEDS ORDERED: NACL 0.9% 1000 ML 1,000 ML IV SCH (11:00)
[2017-03-26 15:28] VITALS: BP 151/90
--- NOTE | 2017-03-30 03:50 | Cardiac Catherization Report ---
HISTORY: The patient is a 67-year-old male, who has been experiencing occasional chest pain at rest and he underwent a stress thallium study that was abnormal, so coronary angiography was recommended. PROCEDURE: Left heart catheterization, ventriculography, and coronary angiography via the right radial artery using 5-Arabic Shane catheters and pigtail catheter. COMPLICATIONS: None. ESTIMATED BLOOD LOSS: 10-20 mL. SEDATION: Intravenous Versed and fentanyl. TISSUE SAMPLES: None. PREPROCEDURE DIAGNOSIS: Angina. POSTPROCEDURE DIAGNOSIS: Angina with severe 2-vessel coronary artery disease. HEMODYNAMICS: Central aortic pressure 140/81, left ventricular pressure 102/11 with an indigestion felt pressure of 17. ANGIOGRAPHIC RESULTS: 1. Left ventricle: The ventriculogram reveals a normal sized left ventricle with normal systolic function. The ejection fraction is approximately 65%. 2. Right coronary artery: This vessel is the dominant vessel and there are scattered intimal irregularities. The mid portion of the vessel contains a 30% lesion above the RV marginal branch and a second 30% lesion below the RV marginal branch. The early distal portion has a 30% stenosis prior to the bifurcation. 3. Left coronary artery: This vessel is diffusely irregular. The left main is free of remarkable disease. The circumflex contains a proximal 20% stenosis and a mid 90% stenosis. The first obtuse marginal branch contains a mid 40% stenosis. The LAD is diffusely irregular and narrowed. The proximal portion contains a 70% stenosis. The mid portion contains a 75% stenosis and the early distal portion contains 99% stenosis that involves the takeoff of the diagonal branch. The far distal LAD contains 50% lesion. FINAL IMPRESSION: Two-vessel coronary artery disease. The LAD is not amenable to PCI, so coronary artery bypass surgery will be recommended. LV function is normal. The patient first to go to [facility] for Cardiovascular Surgery evaluation. The patient will be transferred by ambulance given the fact that he has had a number of episodes at rest. JOB# [id number] NOELLE/SUNI
== END 2017-03-26 16:00 | disposition critical access hospital (66) ==
LOC: CATHLABREC 05:54
PROVIDERS: ATTEND Internal Medicine
DX: I25.118 Atherosclerotic heart disease of native coronary artery with other forms of angina pectoris (principal); E78.5 Hyperlipidemia, unspecified; F41.9 Anxiety disorder, unspecified; F32.9 Major depressive disorder, single episode, unspecified; Z79.899 Other long term (current) drug therapy; Z98.890 Other specified postprocedural states; Z79.01 Long term (current) use of anticoagulants
CPT/HCPCS: 36415; 80048; 85025; 85610; 85730; 93005; 93010; 93458; 99156; 99157; C1894; J1644; J2250; J3010; J7040; Q9967

== ENCOUNTER 2019-04-08 10:26 | Emergency (ER) | payer MEDICARE ==
[2019-04-08 10:37] VITALS: BP 153/76
[2019-04-08 11:31] LABS: Bilirubin,Urine NEG (Negative); Blood,Urine LG (Negative); Color,Urine Yellow (Yellow); Mucus,Urine 3+ /HPF; Urobilinogen,Urine < 2.0 mg/dL (<2.0)
[2019-04-08 11:37] LABS: Basophils # (Auto) 0.1 K/mm3 (0.0-0.1); Basophils % (Auto) 1.1 % (0.0-1.8); Eosinophils # (Auto) 0.2 K/mm3 (0.0-0.4); Eosinophils % (Auto) 4.1 % (0.0-4.3); Hematocrit 41.2 % (35.5-45.6); Hemoglobin 14.2 gm/dl (11.8-15.2); Lymphocytes % (Auto) 17.7 % (13.4-35.0); Mean Corpuscular HGB Conc 35 % (32-34); Mean Corpuscular Volume 92 fl (84-94); Monocytes # (Auto) 0.5 K/mm3 (0.0-0.8); Monocytes % (Auto) 7.9 % (0.0-7.3); Platelet Count 146 K/mm3 (140-440); Red Blood Count 4.48 M/mm3 (3.65-5.03); Red Cell Distribution Width 12.6 % (13.2-15.2)
[2019-04-08 11:50] LABS: Calcium 9.5 mg/dL (8.4-10.2)
[2019-04-08] MEDS ORDERED: cefTRIAXone/NS 1 GM/50 ML 1 GM/50 ML BAG IV ONE (14:34)
[2019-04-08] MEDS ORDERED: KETOROLAC 30 MG/1 ML INJ IV ONE (14:35)
--- NOTE | 2019-04-08 14:56 | Emergency Department Report ---
ED Abdominal Pain HPI - General Chief Complaint: Abdominal Pain Stated Complaint: HIP AND BACK PAIN Time Seen by Provider: 04/08/19 14:33 Source: patient Mode of arrival: Ambulatory Limitations: No Limitations - History of Present Illness Initial Comments: 69-year-old male with a past medical history of BPH status post TURP, GERD, hypertension, right inguinal hernia repair, and CABG 3 visits to the hospital complaining of intermittent right flank pain for the past 3 days. Pain is constant but improved with Motrin which she takes every 4 hours to help alleviate pain. Pain is described as aching without aggravating or alleviating factors. Occasional radiation down to his right hip. Patient denies nausea, vomiting, polyuria, dysuria, hematuria, or fever. History of small kidney stone reported without any need for surgical intervention. Urologist: Dr. Dozier - Related Data Home Medications Medication Instructions Recorded Confirmed Last Taken Doxazosin [Cardura] 2 mg PO QDAY 11/15/16 03/26/17 03/25/17 200 mg Simvastatin (Nf) [Zocor TAB] 20 mg PO QHS 11/15/16 03/26/17 03/25/17 raNITIdine HCl [Ranitidine HCl] 150 mg PO BID 11/15/16 03/26/17 03/25/17 Sertraline [Zoloft] 100 mg PO QDAY 12/05/16 03/26/17 03/25/17 Acetaminophen [Tylenol Extra 500 mg PO PRN PRN 03/26/17 03/26/17 03/25/17 Strength] buPROPion HCL [buPROPion] 75 mg PO BID 03/26/17 03/26/17 03/25/17 traZODone [Desyrel] 100 mg PO QDAY 03/26/17 03/26/17 03/25/17 Previous Rx's Medication Instructions Recorded Last Taken Type HYDROcodone/APAP 5-325 [[place] 1 each PO Q6HR PRN #20 tablet 04/08/19 Unknown Rx 5/325] Ibuprofen [Motrin] 800 mg PO Q8HR PRN #30 tablet 04/08/19 Unknown Rx Ondansetron [Zofran Odt] 4 mg PO Q8HR PRN #20 tab.rapdis 04/08/19 Unknown Rx Tamsulosin [Flomax] 0.4 mg PO QDAY #10 cap 04/08/19 Unknown Rx cephALEXin [Keflex] 500 mg PO Q6HR #40 capsule 04/08/19 Unknown Rx Allergies Allergy/AdvReac Type Severity Reaction Status Date / Time adhesive tape Allergy Rash Unverified 05/07/17 12:23 ED Review of Systems ROS: Stated complaint: HIP AND BACK PAIN Other details as noted in HPI Comment: All other systems reviewed and negative ED Past Medical Hx - Past Medical History Previous Medical History?: Yes Hx Hypertension: Yes Hx Diabetes: No (HIGH BLOOD SUGAR IN ER) Hx GERD: Yes Hx Psychiatric Treatment: Yes (Anxiety) Hx HIV: No Additional medical history: Right inguinal hernia. BPH - Surgical History Past Surgical History?: Yes Hx Open Heart Surgery: Yes (CABG) Additional Surgical History: Right inguinal hernia repair - Social History Smoking Status: Never Smoker Substance Use Type: None - Medications Home Medications: Home Medications Medication Instructions Recorded Confirmed Last Taken Type Doxazosin [Cardura] 2 mg PO QDAY 11/15/16 03/26/17 03/25/17 History 200 mg Simvastatin (Nf) [Zocor TAB] 20 mg PO QHS 11/15/16 03/26/17 03/25/17 History raNITIdine HCl [Ranitidine HCl] 150 mg PO BID 11/15/16 03/26/17 03/25/17 History Sertraline [Zoloft] 100 mg PO QDAY 12/05/16 03/26/17 03/25/17 History Acetaminophen [Tylenol Extra 500 mg PO PRN PRN 03/26/17 03/26/17 03/25/17 History Strength] buPROPion HCL [buPROPion] 75 mg PO BID 03/26/17 03/26/17 03/25/17 History traZODone [Desyrel] 100 mg PO QDAY 03/26/17 03/26/17 03/25/17 History HYDROcodone/APAP 5-325 [[place] 1 each PO Q6HR PRN #20 tablet 04/08/19 Unknown Rx 5/325] Ibuprofen [Motrin] 800 mg PO Q8HR PRN #30 tablet 04/08/19 Unknown Rx Ondansetron [Zofran Odt] 4 mg PO Q8HR PRN #20 tab.rapdis 04/08/19 Unknown Rx Tamsulosin [Flomax] 0.4 mg PO QDAY #10 cap 04/08/19 Unknown Rx cephALEXin [Keflex] 500 mg PO Q6HR #40 capsule 04/08/19 Unknown Rx ED Physical Exam - General Limitations: No Limitations - Other Other exam information: General: No limitations, patient is alert in no acute distress Head exam: Atraumatic, normocephalic Eyes exam: Normal appearance ENT: Moist mucous membrane Neck exam: Normal inspection, full range of motion Respiratory exam: Clear to auscultation bilateral, no wheezes, rales, crackles Cardiovascular: Normal rate and rhythm Abdomen: Soft, nondistended, and nontender, with normal bowel sounds, no rebound, or guarding, Extremity: No deformity Back: Normal Inspection, no CVA tenderness Neurologic: Alert, oriented x3, speech clear, no gross motor or sensory deficit Psychiatric: Normal mood, affect Skin: No rash ED Course Vital Signs 04/08/19 04/08/19 04/08/19 10:35 10:38 12:38 Temperature 97.5 F L 97.5 F L Pulse Rate 61 Respiratory 16 16 Rate Blood Pressure 153/76 O2 Sat by Pulse 94 94 Oximetry 04/08/19 16:18 Temperature Pulse Rate Respiratory 16 Rate Blood Pressure O2 Sat by Pulse Oximetry - Consultations Consultation #1: 04/08/19 17:34 case d/w DR Dozier urologist, follow up will be provided 04/08/19 17:48 office called pt to schedule f/u apt thursday 3pm ED Medical Decision Making - Lab Data Result diagrams: 04/08/19 11:07 04/08/19 11:07 Lab Results 04/08/19 04/08/19 04/08/19 Range/Units 10:52 11:07 11:07 WBC 5.9 (4.5-11.0) K/mm3 RBC 4.48 (3.65-5.03) M/mm3 Hgb 14.2 (11.8-15.2) gm/dl Hct 41.2 (35.5-45.6) % MCV 92 (84-94) fl MCH 32 (28-32) pg MCHC 35 H (32-34) % RDW 12.6 L (13.2-15.2) % Plt Count 146 (140-440) K/mm3 Lymph % (Auto) 17.7 (13.4-35.0) % [place] % (Auto) 7.9 H (0.0-7.3) % Eos % (Auto) 4.1 (0.0-4.3) % Baso % (Auto) 1.1 (0.0-1.8) % Lymph # 1.0 L (1.2-5.4) K/mm3 [place] # 0.5 (0.0-0.8) K/mm3 Eos # 0.2 (0.0-0.4) K/mm3 Baso # 0.1 (0.0-0.1) K/mm3 Seg Neutrophils % 69.2 (40.0-70.0) % Seg Neutrophils # 4.1 (1.8-7.7) K/mm3 Sodium 143 (137-145) mmol/L Potassium 4.3 (3.6-5.0) mmol/L Chloride 109.3 H (98-107) mmol/L Carbon Dioxide 21 L (22-30) mmol/L Anion Gap 17 mmol/L BUN 21 H (9-20) mg/dL Creatinine 1.3 (0.8-1.5) mg/dL Estimated GFR 55 ml/min BUN/Creatinine Ratio 16 % Glucose 130 H (75-100) mg/dL Calcium 9.5 (8.4-10.2) mg/dL Total Bilirubin 2.40 H (0.1-1.2) mg/dL AST 24 (5-40) units/L ALT 23 (7-56) units/L Alkaline Phosphatase 72 (35-129) units/L Total Protein 6.2 L (6.3-8.2) g/dL Albumin 4.0 (3.9-5) g/dL Albumin/Globulin Ratio 1.8 % Urine Color Yellow (Yellow) Urine Turbidity Slightly-cloudy (Clear) Urine pH 5.0 (5.0-7.0) Ur Specific [place] 1.028 (1.003-1.030) Urine Protein 30 mg/dl (Negative) mg/dL Urine Glucose (UA) Neg (Negative) mg/dL Urine Ketones Neg (Negative) mg/dL Urine Blood Lg (Negative) Urine Nitrite Neg (Negative) Urine Bilirubin Neg (Negative) Urine Urobilinogen < 2.0 (<2.0) mg/dL Ur Leukocyte Esterase Tr (Negative) Urine WBC (Auto) 13.0 H (0.0-6.0) /HPF Urine RBC (Auto) 117.0 (0.0-6.0) /HPF U Epithel Cells (Auto) 1.0 (0-13.0) /HPF Urine Mucus 3+ /HPF - Radiology Data Radiology results: report reviewed CT ABDOMEN AND PELVIS WITHOUT CONTRAST INDICATION: right flank pain. COMPARISON: No relevant prior imaging study available. TECHNIQUE: Axial, coronal and sagittal CT imaging of the abdomen and pelvis was performed without contrast. Lack of intravenous contrast limits evaluation of the vascular and solid organs. All CT scans at this location are performed using CT dose reduction for ALARA by means of automated exposure control. FINDINGS: LOWER CHEST: The lung bases are clear. 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 The heart is normal in size. There is a small hiatal hernia. No additional significant abnormality. LIVER: No significant abnormality. BILIARY: No significant abnormality. PANCREAS: Mild atrophy is seen along the pancreatic head/uncinate process. No additional significant abnormality. SPLEEN: No significant abnormality. ADRENALS: No significant abnormality. KIDNEYS AND URETERS: Along the proximal third of the right ureter on image 107 of series 2 is a 6 mm stone located at the level of L3-L4. There is secondary mild hydroureteronephrosis. No additional stones are seen on the right. A right lower renal pole cyst measures 4.6 cm. No additional significant abnormality of the right kidney or ureter. 2 nonobstructive stones along the left lower renal pole measure up to 2 mm. No additional stones are seen. No other significant abnormality of the left kidney/ureter is noted. GI TRACT: No additional significant abnormality of the stomach. No significant abnormality of the small bowel. There is sigmoid diverticulosis without evidence of diverticulitis. No additional significant abnormality of the colon. Unremarkable appendix. PERITONEUM: No free fluid. No free air. No fluid collection. LYMPH NODES: No significant adenopathy. VASCULATURE: The aorta is normal in caliber with mild generalized atheroscleros is. URINARY BLADDER: No significant abnormality. REPRODUCTIVE ORGANS: No significant abnormality. ADDITIONAL FINDINGS: There are small bilateral inguinal hernias, right greater than left. The left inguinal hernia contains fat. The right angle hernia contains unremarkable appearing bowel loops. No associated inflammation is identified. Small midline ventral hernias are seen containing fat without associated inflammation. SKELETAL SYSTEM: No acute abnormality. Degenerative changes are seen throughout the spine and pelvis. IMPRESSION: 1. 6 mm right ureteral stone as above with secondary mild obstruction. 2. Nonobstructive left renal stones measuring up to 2 mm. 3. Additional findings as above. - Medical Decision Making Renal stone with mild obstruction. Positive UTI. Pain controlled in the ED. Case discussed with urology. Patient will be treated symptomatically and with antibiotics. Bilateral inguinal hernias noted without signs of obstruction. - Differential Diagnosis UTI, kidney stone, renal colic Critical Care Time: No Critical care attestation.: If time is entered above; I have spent that time in minutes in the direct care of this critically ill patient, excluding procedure time. ED Disposition Clinical Impression: Right ureteral stone, UTI (urinary tract infection), Right flank pain, Bilateral inguinal hernia Disposition: TO HOME OR SELFCARE Is pt being admited?: No Does the pt Need Aspirin: No Condition: Stable Instructions: Urinary Tract Infection in Men (ED), Renal Colic (ED), Inguinal Hernia (ED) Additional Instructions: Take the medication as prescribed. Follow-up with your doctor or the doctor/clinic provided. Return if symptoms worsen as indicated by your discharge instructions. Prescriptions: Tamsulosin [Flomax] 0.4 mg PO QDAY #10 cap cephALEXin [Keflex] 500 mg PO Q6HR #40 capsule Ibuprofen [Motrin] 800 mg PO Q8HR PRN #30 tablet PRN Reason: Pain, Moderate (4-6) HYDROcodone/APAP 5-325 [Vina 5/325] 1 each PO Q6HR PRN #20 tablet PRN Reason: Pain Ondansetron [Zofran Odt] 4 mg PO Q8HR PRN #20 tab.rapdis PRN Reason: Nausea And Vomiting Referrals: ZABRINA HOLDER MD [Primary Care Provider] - 3-5 Days GRADY DOZIER MD [Staff Physician] - 04/11/19 3:00 pm Time of Disposition: 17:38
--- NOTE | 2019-04-08 16:34 | Cat Scan Report ---
CT ABDOMEN AND PELVIS WITHOUT CONTRAST INDICATION: right flank pain. COMPARISON: No relevant prior imaging study available. TECHNIQUE: Axial, coronal and sagittal CT imaging of the abdomen and pelvis was performed without co ntrast. Lack of intravenous contrast limits evaluation of the vascular and solid organs. All CT sca ns at this location are performed using CT dose reduction for ALARA by means of automated exposure co ntrol. FINDINGS: LOWER CHEST: The lung bases are clear. 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 The heart is normal in size. There is a small hiatal hernia. No additional significant abnormality. LIVER: No significant abnormality. BILIARY: No significant abnormality. PANCREAS: Mild atrophy is seen along the pancreatic head/uncinate process. No additional significant abnormality. SPLEEN: No significant abnormality. ADRENALS: No significant abnormality. KIDNEYS AND URETERS: Along the proximal third of the right ureter on image 107 of series 2 is a 6 mm stone located at the level of L3-L4. There is secondary mild hydroureteronephrosis. No additional sto earnestine are seen on the right. A right lower renal pole cyst measures 4.6 cm. No additional significant a bnormality of the right kidney or ureter. 2 nonobstructive stones along the left lower renal pole aniya sure up to 2 mm. No additional stones are seen. No other significant abnormality of the left kidney/u reter is noted. GI TRACT: No additional significant abnormality of the stomach. No significant abnormality of the sma ll bowel. There is sigmoid diverticulosis without evidence of diverticulitis. No additional significa nt abnormality of the colon. Unremarkable appendix. PERITONEUM: No free fluid. No free air. No fluid collection. LYMPH NODES: No significant adenopathy. VASCULATURE: The aorta is normal in caliber with mild generalized atherosclerosis. URINARY BLADDER: No significant abnormality. REPRODUCTIVE ORGANS: No significant abnormality. ADDITIONAL FINDINGS: There are small bilateral inguinal hernias, right greater than left. The left in guinal hernia contains fat. The right angle hernia contains unremarkable appearing bowel loops. No as sociated inflammation is identified. Small midline ventral hernias are seen containing fat without as sociated inflammation. SKELETAL SYSTEM: No acute abnormality. Degenerative changes are seen throughout the spine and pelvis. IMPRESSION: 1. 6 mm right ureteral stone as above with secondary mild obstruction. 2. Nonobstructive left renal stones measuring up to 2 mm. 3. Additional findings as above. Signer Name: Ajay Rasmussen MD Signed: 04/08/2019 4:30 PM Workstation Name: [id number]
== END 2019-04-08 18:00 | disposition home or self-care (01) ==
LOC: ED 10:26
DX: K40.20 Bilateral inguinal hernia, without obstruction or gangrene, not specified as recurrent (principal); N39.0 Urinary tract infection, site not specified; N21.1 Calculus in urethra; R10.9 Unspecified abdominal pain; I10 Essential (primary) hypertension; F31.9 Bipolar disorder, unspecified; K21.9 Gastro-esophageal reflux disease without esophagitis; Z91.09 Other allergy status, other than to drugs and biological substances; Z95.1 Presence of aortocoronary bypass graft; Z98.890 Other specified postprocedural states; Z79.899 Other long term (current) drug therapy
CPT/HCPCS: 36415; 74176; 80053; 81001; 85025; 87086; 96365; 99284; J0696